=== PATIENT | female | born 1950 | race Caucasian/White ===

== ENCOUNTER 2018-01-02 06:26 | Day surgery (SDC) | payer OTHER ==
[~2018-01-02 06:26] MED LIST: CEFAZOLIN 2 GM/50 ML (PMX) 50 ML IVPB; SOD CHLORIDE 0.9% 1,000 ML IV
[2018-01-02] MEDS ORDERED: CEFAZOLIN 1 GM INJ (07:00)
[2018-01-02] MEDS: BUPIVACAINE 0.25% (MPF) 30 ML INJ (07:51)
[2018-01-02] MEDS ORDERED: PROPOFOL 20 ML (07:58)
[2018-01-02] MEDS ORDERED: METOCLOPRAMIDE 10 MG INJ (07:58)
[2018-01-02] MEDS ORDERED: LIDOCAINE 2% (SDV) 5 ML INJ (07:58)
[2018-01-02] MEDS ORDERED: MEPERIDINE /PF (100 MG/2 ML) AMPULE (07:58)
[2018-01-02] MEDS ORDERED: ONDANSETRON 4 MG INJ (07:58)
[2018-01-02] MEDS ORDERED: EPHEDrine 25 MG/5 ML SYG (08:43)
[2018-01-02] MEDS ORDERED: NALOXONE (0.4 MG/ML) INJ (09:00)
[2018-01-02] MEDS ORDERED: HYDROCODONE/APAP (5/325) TAB PO (09:00)
[2018-01-02] MEDS ORDERED: METOCLOPRAMIDE 10 MG INJ IV (09:30)
[2018-01-02] MEDS ORDERED: hydrALAzine 20 MG INJ IV (09:30)
[2018-01-02] MEDS ORDERED: FENTAnyl 50 MCG/ML VIAL IV ×3 (09:30)
[2018-01-02] MEDS ORDERED: MEPERIDINE 25 MG INJ IV (09:30)
[2018-01-02] MEDS ORDERED: DIPHENHYDRAMINE 50 MG INJ IV (09:30)
[2018-01-02] MEDS ORDERED: LABETALOL HCL 20MG INJ IV (09:30)
[2018-01-02] MEDS ORDERED: ONDANSETRON 4 MG INJ IV (09:30)
[2018-01-02] MEDS ORDERED: OXYCODONE/ACETAMINOPHEN (5/325) TAB PO ×2 (09:30)
[2018-01-02] MEDS ORDERED: MIDAZOLAM 1 MG/ML 2 ML INJ IV (09:30)
[2018-01-02] MEDS ORDERED: EPHEDrine SULFATE 50 MG/5 ML SYG IV (09:30)
== END 2018-01-02 11:00 | disposition home or self-care (01) ==
LOC: SDS 06:26
DX: D17.0 Benign lipomatous neoplasm of skin and subcutaneous tissue of head, face and neck (principal); L72.0 Epidermal cyst
CPT/HCPCS: 14020; 88307